=== PATIENT | male | born 1975 | race Two or more races ===

== ENCOUNTER 2024-05-08 07:22 | Emergency (ER) | payer MEDICAID, SELFPAY ==
[2024-05-08 07:30] VITALS: BP 138/71; PULSE 122; RESP 19; TEMP 37.7; O2SAT 98; BMI 28.2
--- NOTE | 2024-05-08 07:58 | EKG_ITS ---
[facility] Test Date: 2024-05-08 Pat Name: DARIANA VELIZ Department: Room: - Gender: Male [employer]: : 1975 Requested By: Luz Marina Jensen ([facility]) Lm Order Number: [id number] Reading MD: Luz Marina Jensen ([facility]) Lm Measurements Intervals [place] Rate: 109 P: 61 AK: 108 QRS: 56 QRSD: 66 T: 48 QT: 318 QTc: 429 Interpretive Statements SINUS TACHYCARDIA WITH SHORT [place] INTERVAL ABNORMAL RHYTHM ECG Compared to ECG 08/08/2022 10:41:31 No significant changes /store/S0/[id number]/ecg/[id number].pdf
--- NOTE | 2024-05-08 07:58 | PD.EDRME ---
Rapid Medical Screening Exam RME Arrival date/time: 05/08/24 07:22 Patient 49-year-old male who presents to the emergency department with complaints of increased thirst body aches generalized weakness. Patient is tachycardic during RME initial intake. I have greeted and performed a focused initial assessment of this patient. Initial appropriate labs ordered at this time. A comprehensive ED assessment and evaluation of the patient and analysis of all test and completion of medical decision making process will be conducted by additional ED provider. Chief Complaint: Flu Like Symptoms Time Seen by Provider: 05/08/24 07:26 Vital signs: Vital Signs Temperature 99.8 F 05/08/24 07:30 Pulse Rate 122 H 05/08/24 07:30 Respiratory Rate 19 05/08/24 07:30 Blood Pressure 138/71 H 05/08/24 07:30 Pulse Oximetry (%) 98 05/08/24 07:30 Oxygen Delivery Method Room Air 05/08/24 07:30
[2024-05-08 08:50] LABS: Basophils % (Auto) 0 % (0-2.5); Eosinophils # (Auto) 0.1 Thou/mm3 (0.0-0.5); Eosinophils % (Auto) 1 % (0-10); Hematocrit 38.4 % (41.0-53.0); Hemoglobin 13.6 g/dL (13.5-16.0); Immature Granulocytes % (Auto) 0 % (0-0); Immature Granulocytes Auto 0.01 Thou/mm3 (0.00-0.00); Lymphocytes # (Auto) 1.4 Thou/mm3 (1.0-4.8); Lymphocytes % (Auto) 17 % (10-50); Mean Corpuscular HGB Conc 35.4 g/dl (31.0-37.0); Mean Corpuscular Volume 85 fL (80-100); Monocytes # (Auto) 1.2 Thou/mm3 (0.0-0.8); Monocytes % (Auto) 15 % (0-12); Neutrophils # (Auto) 5.6 Thou/mm3 (1.8-7.7); Neutrophils % (Auto) 67 % (37-80); Nucleated Red Blood Cell % 0 /100 WBC (0); Platelet Count 199 Thou/mm3 (140-440); RDW Standard Deviation 38.2 fL (35.1-43.9); Red Blood Count 4.54 Miln/mm3 (4.50-5.90); White Blood Count 8.3 Thou/mm3 (3.8-10.6)
--- NOTE | 2024-05-08 09:10 | PC.NURSE ---
COVID/FLU NEG
[2024-05-08 09:16] LABS: Collection Type, Urine Clean Catch; Squamous Epithelial Cell,Urine 0 /hpf (0-5)
[2024-05-08 09:17] LABS: Alanine Aminotransferase 47 U/L (10-49); Albumin, Serum 4.4 gm/dL (3.5-5.0); Albumin/Globulin Ratio 1.1 (1.2-2.2); Alkaline Phosphatase 66 U/L (46-116); Anion Gap 12 (7-16); Aspartate Amino Transferase 60 U/L (0-34); BUN/Creatinine Ratio 17 Ratio (12-20); Bilirubin,Total 1.6 mg/dL (0.3-1.2); Blood Urea Nitrogen 15 mg/dL (9-23); Calcium 9.9 mg/dL (8.3-10.6); Calcium (Corrected) 9.9 mg/dL (8.5-10.1); Carbon Dioxide 24.4 mMol/L (20.0-31.0); Chloride 102 mMol/L (98-107); Creatinine (Component) 0.9 mg/dL (0.6-1.3); Estimated Creatinine Clearance 99.4 mL/min (>60); Glucose 115 mg/dL (74-106); Lipase 44 U/L (12-53); Osmolality,Calculated 277 (275-295); Potassium 3.6 mMol/L (3.4-5.1); Sodium 138 mMol/L (136-145); Total Protein 8.4 gm/dL (5.7-8.2); Troponin I < 0.020 ng/mL (0.0-0.045); eGFR > 60 See Note
[2024-05-08 09:34] LABS: Amphetamine/Methamp Scrn,U Positive (Negative); Barbiturate Screen,Urine Negative (Negative); Benzodiazepines Screen,Urine Negative (Negative); Benzoylecgonine Screen, Ur Negative (Negative); Opiate Screen,Urine Negative (Negative); THC Screen,Urine Positive (Negative)
[2024-05-08 10:00] LABS: Bilirubin,Urine Negative (Negative); Blood,Urine Negative (Negative); Color,Urine Yellow (Lt Yel-Yel); Glucose, Urine Negative (Negative); Ketones,Urine 3+ (Negative); Leukocyte Esterase,Urine Negative (Negative); Nitrite,Urine Negative (Negative); PH,Urine 6.5 (5.0-7.0); Protein,Urine 4+ (Neg - Trace); RBC,Urine 233 /hpf (0-3); Specific Gravity,Urine 1.033 (1.001-1.035); WBC,Urine 57 /hpf (0-5)
[2024-05-08 10:02] LABS: Clarity,Urine Cloudy (Clear/Hazy); Sperm,Urine Present
[2024-05-08 11:28] VITALS: BP 172/92; PULSE 120; RESP 18; TEMP 36.8; O2SAT 98
[2024-05-08 14:39] LABS: Fentanyl Screen,Urine Positive (Negative)
--- NOTE | 2024-06-01 07:39 | PD.EDURI ---
Upper Respiratory Inf. RME/HPI General Chief Complaint: Flu Like Symptoms Stated Complaint: chills, body aches, cough x2d Time Seen by Provider: 05/08/24 07:26 Source: patient Arrival date/time: 05/08/24 07:22 This is a 49-year-old male history of homelessness and drug abuse here with complaints of intermittent cough chills and bodyaches for 2 days. Positive history of recent exposure to influenza. Denies any chest pain, dyspnea or BLE. Mode of arrival: ambulatory RME / HPI RME / HPI Narrative: 05/08/24 07:22 Patient 49-year-old male who presents to the emergency department with complaints of increased thirst body aches generalized weakness. Patient is tachycardic during RME initial intake. I have greeted and performed a focused initial assessment of this patient. Initial appropriate labs ordered at this time. A comprehensive ED assessment and evaluation of the patient and analysis of all test and completion of medical decision making process will be conducted by additional ED provider. Related Data Previous Rx's ?Medication ?Instructions ?Recorded benzonatate 200 mg capsule 200 mg PO TID PRN cough #14 caps 08/08/22 doxycycline monohydrate 100 mg 100 mg PO BID #14 caps 08/08/22 capsule acetaminophen 325 mg tablet 650 mg (2 x 325 mg) PO Q6H PRN 05/08/24 (Tylenol) pain #30 tabs benzonatate 200 mg capsule 200 mg PO BID PRN cough #14 caps 05/08/24 Allergies Allergy/AdvReac Type Severity Reaction Status Date / Time No Known Allergies Allergy Verified 05/08/24 07:25 Review of Systems Review of Systems Systems Reviewed: All systems reviewed, normal except as documented Narrative Review of Systems: Gen: +fever, no chills, no weight loss EYES: No discharge, no visual changes, no pain HEENT: No ear pain, no congestion, no sore throat PULM: No shortness of breath, + cough, + congestion CV: No chest pain, no dyspnea on exertion, no palpitations GI: No nausea, no vomiting, no diarrhea, no pain, no constipation : No frequency, no urgency,? no dysuria Musc/skel: No joint pain, no back pain Skin: No rash? Psyc: No hallucinations, no depression Heme/Lymph: No easy bleeding or bruising tendencies Neuro: No weakness, no headache ED Exam Narrative Physical exam: General: Disheveled 49-year-old male Sittiing in Exam table in no acute distress, answering questions appropriately HENT: normocephalic, atraumatic, EOMI, PERRLA, moist mucous membranes Chest: chest wall is nontender Cardiac: regular rate and rhythm, normal S1 and S2, no murmurs, rubs, or gallops, capillary refill ?2 seconds Pulmonary: clear to auscultation bilaterally, no wheezing, crackles, or rhonchi Abdominal: active bowel sounds, soft, nontender, nondistended Neuro: A&OX3, CN II-XII intact, sensation grossly intact bilaterally in UE and LE. Skin: no rashes, no ecchymosis Ext: no lower extremity edema Course Quality Measures none Orders Category Date Time Status Bedside Blood Glucose NOW Care 05/08/24 07:56 Completed Bedside COVID-19 Antigen Test NOW Care 05/08/24 10:02 Completed Bedside Influenza A&B Antigen Test NOW Care 05/08/24 10:02 Completed EKG (ED ONLY) *Do not use* NOW Care 05/08/24 07:58 Completed EKG (ED Only) Stat Exams 05/08/24 07:58 Draft CBC Stat Lab 05/08/24 08:20 Completed Comprehensive Metabolic Panel Stat Lab 05/08/24 08:20 Completed Drug Screen,Urine Stat Lab 05/08/24 09:06 Completed Lipase Stat Lab 05/08/24 08:20 Completed Troponin I Stat Lab 05/08/24 08:20 Completed Urinalysis Stat Lab 05/08/24 09:06 Completed Vital Signs Vital signs: Vital Signs Temperature 99.8 F 05/08/24 07:30 Pulse Rate 122 H 05/08/24 07:30 Respiratory Rate 19 05/08/24 07:30 Blood Pressure 138/71 H 05/08/24 07:30 Pulse Oximetry (%) 98 05/08/24 07:30 Oxygen Delivery Method Room Air 05/08/24 07:30 Upper Respiratory Infection Patient data External records reviewed:: [facility] previous records Clinical information provided by:: patient Social determinants that could affect healthcare access:: none Patient has the following chronic illnesses:: none How is presenting disease/condition affected by chronic disease/condition?: no chronic disease Evaluation data The following diagnostics were reviewed and interpreted by me:: other (specify) Lab and/or radiology exams considered but not ordered:: none Interpretation Summary: none Medications / Prescriptions Medications or Prescriptions considered but not ordered:: none Medication administrations:: none Consultations Consultation(s) initiated? (list below): No Diagnosis Upper Respiratory Differential Diagnosis: upper respiratory infection and other Most likely diagnosis given after review of the tests above:: Upper respiratory infection, drug use Admission Indicated Admission indicated?: not indicated Admission Request Was there a request for admission?: No Disposition Plan Disposition Plan: Discharge Discharge Attestation Discharge Attestation: The patient and all family members were given an opportunity to ask questions and understood the discharge instructions. Discharge instructions specifically effects, indications for sooner follow up or return to the emergency department, and the expected course of current diagnosis. Patient condition: Stable Discharge Plan Plan Patient Disposition: HOME (Self Care) Patient condition on transfer: Stable Prescriptions/Referrals Prescriptions/Med Rec: New benzonatate 200 mg capsule 200 mg PO BID PRN (Reason: cough) Qty: 14 0RF acetaminophen [Tylenol] 325 mg tablet 650 mg PO Q6H PRN (Reason: pain) Qty: 30 0RF No Action doxycycline monohydrate 100 mg capsule 100 mg PO BID Qty: 14 0RF benzonatate 200 mg capsule 200 mg PO TID PRN (Reason: cough) Qty: 14 0RF Referrals: No Primary/Family,Physician [Primary Care Provider] - In 1 week Problem List Clinical Impression: Drug abuse, URI (upper respiratory infection) Patient/Caregiver Discharge Instructions Discharge Activity: activity as tolerated Education Materials: ED Drug Abuse, ED URI, Viral, No Abx (Adult) Additional Instructions: Please stop using drugs it can harm your health. Follow-up with your primary doctor Return to the emergency department is any worsening symptoms change in condition. Print Language: Bulgarian Stand Alone Forms: [employer] Patient Portal Info Letter PA/STEPHAN Supervising Physician PA/STEPHAN Supervising Physician: Dr. Whitley
== END 2024-05-08 11:28 | disposition home or self-care (01) ==
PROVIDERS: Nurse Practitioner Primary Care; Emergency Provider Emergency Medicine
DX: J06.9 Acute upper respiratory infection, unspecified (principal); F19.10 Other psychoactive substance abuse, uncomplicated; R00.0 Tachycardia, unspecified; Z59.00 Homelessness unspecified
CPT/HCPCS: 36415; 80053; 80307; 81001; 83690; 84484; 85025; 87400; 87811; 93005; 99283